=== PATIENT | male | born 1945 | race Caucasian/White ===

== ENCOUNTER 2022-10-11 19:49 | Inpatient (IN) | payer OTHER ==
[2022-10-11] MEDS ORDERED: NA CHLORIDE 0.9% 500 ML ONE ×2 (20:03→22:16)
[2022-10-11 20:38] LABS: Absolute Lymphocytes (CBC) 0.9 K/uL (0.7-4.9); Hematocrit 32.7 % (39.6-49.0); Lymphocytes % 16.5 % (15.3-44.8); MCV 68.2 fL (80-100); MPV 9.6 fL (7.6-11.3)
[2022-10-11 20:42] LABS: Protime INR 1.12
[2022-10-11 20:56] LABS: Albumin 4.1 g/dL (3.4-5.0); Bilirubin Total 0.9 mg/dL (0.2-1.0); Potassium 4.2 mmol/L (3.5-5.1)
--- NOTE | 2022-10-11 21:00 | RAD REPORT ---
EXAM DESCRIPTION: CT - Head Brain Wo Cont - 10/11/2022 8:28 pm CLINICAL HISTORY: AMS COMPARISON: <Comparisons> TECHNIQUE: All CT scans are performed using dose optimization technique as appropriate and may inclu de automated exposure control or mA/KV adjustment according to patient size. FINDINGS: No intracranial hemorrhage, hydrocephalus or extra-axial fluid collection.No areas of brai n edema or evidence of midline shift. Mild chronic small vessel ischemic changes. The paranasal sinuses and mastoids are clear. The calvarium is intact. IMPRESSION: No acute intracranial abnormality.
[2022-10-11 21:07] LABS: Urine Blood 2+ (Negative); Urine Glucose Negative (Negative); Urine Protein 1+ (Negative); Urine Specific Gravity >=1.030 (1.005-1.030); Urine pH 5.5 (5.0-7.0)
[2022-10-11 21:17] LABS: Urine Bacteria 20-50 /HPF (<20); Urine Crystals Unidentified Few /HPF (None Seen); Urine Mucus Slight /HPF (None Seen); Urine RBC >50 /HPF (None Seen)
[2022-10-11 21:18] LABS: SARS-COV-2 RT PCR POSITIVE (NEGATIVE)
--- NOTE | 2022-10-11 21:28 | ER ---
Nurse's Notes [facility] Name: Dejuan Jackman Age: 77 yrs Sex: Male : 1945 Arrival Date: 10/11/2022 Time: 19:51 Bed 3 Private MD: Diagnosis: UTI/ Urinary tract infection, site not specified;SARS-associated coronavirus as the cause of diseases classified elsewhere;Dehydration;Altered mental status, unspecified Presentation: 10/11 19:54 Chief complaint: EMS states: neighbor called EMS because pt was walking outside with no as6 clothes on, altered mental status. Coronavirus screen: At this time, the client does not indicate any symptoms associated with coronavirus-19. Ebola Screen: No symptoms or risks identified at this time. Risk Assessment: Do you want to hurt yourself or someone else? Patient reports no desire to harm self or others. Onset of symptoms was October 11, 2022. 19:54 Method Of Arrival: EMS: [facility] as6 19:54 Acuity: BOBBY 2 as6 20:30 Initial Sepsis Screen: Does the patient meet any 2 criteria? Altered Mental Status. as6 Does the patient have a suspected source of infection? No. Patient's initial sepsis screen is negative. Historical: - Allergies: 19:56 Sulfa (Sulfonamide Antibiotics); as6 - PMHx: 19:56 Hypertensive disorder; as6 - Immunization history:: Adult Immunizations unknown. - Social history:: Smoking status: unknown. - Family history:: not pertinent. - Hospitalizations: : No recent hospitalization is reported. Screenin:29 [facility] ED Fall Risk Assessment (Adult) Confusion or Disorientation Yes (5 pts) as6 Intoxicated or Sedated No (0 pts) Impaired Gait Yes (1 pt) Score/Fall Risk Level 3 or more points = High Risk Maintained a safe environment, Educated pt \T\ family on fall prevention, incl call for assistance when getting out of bed. Abuse screen: Denies threats or abuse. Denies injuries from another. Nutritional screening: No deficits noted. Tuberculosis screening: No symptoms or risk factors identified. Assessment: 20:28 General: Appears slender, Behavior is confused . Pain: Denies pain. Neuro: Level of as6 Consciousness is awake, alert, confused, Oriented to person. Respiratory: Respiratory effort is even, unlabored. Derm: skin tear to right forearm. 21:30 Reassessment: Patient appears in no apparent distress at this time. No changes from em6 previously documented assessment. Patient and/or family updated on plan of care and expected duration. Pain level reassessed. 22:30 Reassessment: Patient appears in no apparent distress at this time. No changes from em6 previously documented assessment. Patient and/or family updated on plan of care and expected duration. Pain level reassessed. 23:06 Reassessment: nurse to nurse report given to ashlee beal. em6 Vital Signs: 20:10 BP 121 / 51; Pulse 98; Resp 17 S; Temp 98.5(O); Pulse Ox 93% on R/A; Weight 63.5 kg; as6 Height 5 ft. 7 in. (170.18 cm); 21:25 BP 121 / 57; Pulse 79; Resp 19 S; Pulse Ox 96% on R/A; as6 22:57 BP 103 / 58; Pulse 89; Resp 16 S; Pulse Ox 94% on R/A; as6 20:10 Body Mass Index 21.93 (63.50 kg, 170.18 cm) as6 ED Course: 19:51 Patient arrived in ED. rn 19:51 Von Toro MD is Attending Physician. rn 19:54 Bhargav Taylor, PITER is Primary Nurse. as6 19:56 Triage completed. as6 19:56 Arm band placed on. as6 19:56 Client placed on continuous cardiac and pulse oximetry monitoring. NIBP monitoring mb4 applied. stock replenisher on. Pulse ox on. NIBP on. 19:56 Patient has correct armband on for positive identification. Placed in gown. Bed in low mb4 position. Side rails up X2. 20:05 EKG done, by ED staff, reviewed by Von Toro MD. mb4 20:30 CT Head Brain wo Cont In Process Unspecified. EDMS 20:30 Inserted saline lock: 18 gauge in right antecubital area, using aseptic technique. as6 Blood collected. 21:26 Jerri Ingram MD is Hospitalizing Provider. rn 21:37 Chest Single View XRAY In Process Unspecified. EDMS 22:57 No provider procedures requiring assistance completed. Patient admitted, IV remains in as6 place. 10/12 02:26 Primary Nurse role handed off by Bhargav Taylor RN rn Administered Medications: 10/11 20:20 Drug: NS 0.9% 500 ml Route: IV; Rate: bolus; Site: right antecubital; as6 22:58 Follow up: Response: No adverse reaction; IV Status: Completed infusion; IV Intake: as6 500ml 23:01 Follow up: Response: No adverse reaction; IV Status: Completed infusion; IV Intake: em6 500ml 22:18 Drug: NS 0.9% 500 ml Route: IV; Rate: bolus; Site: right antecubital; em6 22:57 Follow up: Response: No adverse reaction; IV Status: Completed infusion; IV Intake: as6 500ml Medication: 22:57 VIS not applicable for this client. as6 Intake: 22:57 IV: 500ml; Total: 500ml. as6 22:58 IV: 500ml; Total: 1000ml. as6 23:01 IV: 500ml; Total: 1500ml. em6 Outcome: 21:27 Decision to Hospitalize by Provider. rn 22:57 Condition: stable as6 22:57 Instructed on the need for admit. 23:07 Admitted to Med/surg accompanied by tech, via wheelchair, room 409, with chart, Report em6 called to ashlee 23:14 Patient left the ED. as6 10/12 02:34 Patient left the ED. neli Signatures: Dispatcher [employer] EDAlexandrea Pearson RN RN kl Nieto, Roman, MD MD rn Baxter, Mackenzie mb4 Bhargav Taylor RN RN asKajal Thompson RN RN em6
--- NOTE | 2022-10-11 21:28 | EDPHYS ---
Physician Documentation [facility] Name: Dejuan Jackman Age: 77 yrs Sex: Male : 1945 Arrival Date: 10/11/2022 Time: 19:51 Bed 3 Private MD: ED Physician Von Toro HPI: 10/11 20:03 This 77 yrs old Male presents to ER via EMS with complaints of AMS. rn 20:03 The patient presents with agitation, confusion, disorientation. Onset: The rn symptoms/episode began/occurred at an unknown time. Possible causes: unknown. Associated signs and symptoms: Pertinent positives: agitation, confusion, Pertinent negatives: abdominal pain, chest pain, headache. Current symptoms: In the emergency department the patient's symptoms are unchanged from the initial presentation. The patient has experienced similar episodes in the past. It is unknown whether or not the patient has recently seen a physician. Per EMS, neighbor called 911 when patient was walking outside naked in cold acting funny. Family member reports seen for this before and "always UTI". Patient denies trauma. Denies focal pain or injury. Was agitated and combative at scene, did not require any meds, now more calm. . Historical: - Allergies: 19:56 Sulfa (Sulfonamide Antibiotics); as6 - PMHx: 19:56 Hypertensive disorder; as6 - Immunization history:: Adult Immunizations unknown. - Social history:: Smoking status: unknown. - Family history:: not pertinent. - Hospitalizations: : No recent hospitalization is reported. ROS: 20:03 Constitutional: Negative for fever, chills, and weight loss, Eyes: Negative for injury, rn pain, redness, and discharge, Neck: Negative for injury, pain, and swelling, Cardiovascular: Negative for chest pain, palpitations, and edema, Respiratory: Negative for shortness of breath, cough, wheezing, and pleuritic chest pain, Abdomen/GI: Negative for abdominal pain, nausea, vomiting, diarrhea, and constipation, Back: Negative for injury and pain, MS/Extremity: Negative for injury and deformity, Skin: Negative for injury, rash, and discoloration, Neuro: Negative for headache, numbness, tingling, and seizure. Exam: 20:03 Constitutional: This is a well developed, well nourished patient who is awake, alert, rn and in no acute distress. Head/Face: Normocephalic, atraumatic. Eyes: Periorbital areas with no swelling, redness, or edema. ENT: dry MM Cardiovascular: Regular rate and rhythm. No pulse deficits. Respiratory: No increased work of breathing, no retractions or nasal flaring. Abdomen/GI: soft, non-tender Skin: Warm, dry, + superficial skin avulsion right dorsal forearm. MS/ Extremity: Pulses equal, no cyanosis. Neurovascular intact. Full, normal range of motion. Equal circumference. Neuro: Awake and alert, GCS 15, oriented to person, place,not time. Cranial nerves II-XII grossly intact. Motor strength 4/5 in all extremities. Sensory grossly intact 22:31 ECG was reviewed by the Attending Physician. rn Vital Signs: 20:10 BP 121 / 51; Pulse 98; Resp 17 S; Temp 98.5(O); Pulse Ox 93% on R/A; Weight 63.5 kg; as6 Height 5 ft. 7 in. (170.18 cm); 21:25 BP 121 / 57; Pulse 79; Resp 19 S; Pulse Ox 96% on R/A; as6 22:57 BP 103 / 58; Pulse 89; Resp 16 S; Pulse Ox 94% on R/A; as6 20:10 Body Mass Index 21.93 (63.50 kg, 170.18 cm) as6 MDM: 19:51 Patient medically screened. rn 21:23 Differential Diagnosis: electrolyte abnormality, sepsis, UTI, volume depletion. rn 21:24 Data reviewed: vital signs, nurses notes. rn 21:24 Counseling: I had a detailed discussion with the patient and/or guardian regarding: the rn historical points, exam findings, and any diagnostic results supporting the discharge/admit diagnosis, lab results, radiology results, the need for further work-up and treatment in the hospital. Response to treatment: the patient's symptoms have mildly improved after treatment, and as a result, I will admit patient. Admission orders: after a detailed discussion of the patient's condition and case, the admit orders are written by me. ED course: Pt with UTI, does not meet severe sepsis criteria. Will admit to hospitalist service. . 10/12 02:21 ED course: Antibiotic order somehow didn't go through, abx ordered on [facility] side rn once admitted. . 02:24 ED course: In review of visit, diagnosis changed to UTI and AMS, as patient does not rn meet severe sepsis criteria as only has 1 SIRS criteria. Pt does not meet severe sepsis criteria. . 10/11 19:53 Order name: Blood Culture Adult (2) rn 10/11 19:53 Order name: CBC with Diff; Complete Time: 21:47 10/11 19:53 Order name: CMP; Complete Time: 21:22 rn 10/11 19:53 Order name: Lactate w/ 2H reflex if indic.; Complete Time: 21:22 10/11 19:53 Order name: Protime (+inr); Complete Time: 21:22 10/11 19:53 Order name: Ptt, Activated; Complete Time: 21:22 10/11 19:53 Order name: Urine Culture 10/11 19:53 Order name: Urine Microscopic Only; Complete Time: 21:22 10/11 19:53 Order name: Chest Single View XRAY; Complete Time: 21:47 10/11 19:53 Order name: COVID-19/FLU A+B; Complete Time: 21:22 10/11 19:53 Order name: CT Head Brain wo Cont; Complete Time: 21:22 10/11 19:53 Order name: BNP; Complete Time: 21:22 10/11 21:08 Order name: Urine Dipstick-Ancillary; Complete Time: 21:22 EDCO 10/11 21:46 Order name: CBC Smear Scan; Complete Time: 21:47 EDCO 10/11 19:53 Order name: EKG; Complete Time: 19:54 10/11 19:53 Order name: Accucheck; Complete Time: 21:17 10/11 19:53 Order name: Cardiac monitoring; Complete Time: 20:02 10/11 19:53 Order name: EKG - Nurse/Tech; Complete Time: 20:02 10/11 19:53 Order name: IV Saline Lock - Large Bore; Complete Time: 20:28 10/11 19:53 Order name: Labs collected and sent; Complete Time: 20:28 10/11 19:53 Order name: O2 Per Protocol; Complete Time: 20:28 10/11 19:53 Order name: O2 Sat Monitoring; Complete Time: 20:28 rn 10/11 19:53 Order name: Urine Dipstick-Ancillary (obtain specimen); Complete Time: 21:17 rn 10/11 19:53 Order name: Vital Signs; Complete Time: 20:28 rn EC/27 22:31 Rate is 101 beats/min. Rhythm is irregular. QRS [place] is Normal. [place] interval is normal. rn QRS interval is normal. QT interval is normal. No Q waves. T waves are Normal. No ST changes noted. Clinical impression: Sinus tachycardia. Interpreted by me. Reviewed by me. Administered Medications: 20:20 Drug: NS 0.9% 500 ml Route: IV; Rate: bolus; Site: right antecubital; as6 22:58 Follow up: Response: No adverse reaction; IV Status: Completed infusion; IV Intake: as6 500ml 23:01 Follow up: Response: No adverse reaction; IV Status: Completed infusion; IV Intake: em6 500ml 22:18 Drug: NS 0.9% 500 ml Route: IV; Rate: bolus; Site: right antecubital; em6 22:57 Follow up: Response: No adverse reaction; IV Status: Completed infusion; IV Intake: as6 500ml Disposition Summary: 10/11/22 21:27 Hospitalization Ordered Hospitalization Status: Inpatient Admission rn Provider: Jerri Ingram rn [facility] rn Condition: Stable rn Problem: new rn Symptoms: have improved rn Bed/Room Type: Standard rn Room Assignment: 409(10/11/22 22:42) cg Diagnosis - UTI/ Urinary tract infection, site not specified rn - SARS-associated coronavirus as the cause of diseases classified elsewhere rn - Dehydration rn - Altered mental status, unspecified rn Forms: - Medication Reconciliation Form rn - SBAR form rn Signatures: Dispatcher [employer] EDMS oVn Toro MD MD rn Garcia, Cindy RN RN cg Bhargav Taylor RN RN as6 Kajal Ramirez RN RN em6 Rose Fisher PA-C PA-C sb4 Corrections: (The following items were deleted from the chart) 22:42 21:27 rn cg 10/12 02:26 10/11 21:24 ED course: Pt with severe sepsis, combination of COVID and UTI, elevated rn lactate, fluids ordered, does not require 30ml/kg bolus as not hypotensive and lactate not > 4. Abx ordered. Will admit to hospitalist service. . lian 10/12 02:10/11 21:27 Severe sepsis without septic shock rn lian 10/12 02:10/11 21:24 Critical Care: rn lian 10/12 21:24 Critical care time: Bedside Care: 35 minutes. Total time: 35 minutes lian beal
--- NOTE | 2022-10-11 21:43 | RAD REPORT ---
EXAM DESCRIPTION: RAD - Chest Single View - 10/11/2022 9:36 pm CLINICAL HISTORY: AMS COMPARISON: No comparisons FINDINGS: Lines: None. Lungs: Low lung volumes. Mild basilar opacities. Pleural: No significant pleural effusions or pneumothorax. Cardiac: The heart size is within normal limits. Mediastinum: Within normal limits. Bones: No acute fractures. Other: None IMPRESSION: Low lung volumes with likely some atelectasis. No consolidative pneumonia or edema ident ified.
[2022-10-11 21:45] LABS: Anisocytosis SLIGHT; Blood Morphology Comment NOTED (NOT SEEN); White Blood Cell Scan OK (OK)
[2022-10-11 21:46] LABS: Platelet Estimate ADEQ
[2022-10-11] MEDS ORDERED: ACETAMINOPHEN 325 MG TABLET PO PRN (23:17)
[2022-10-11] MEDS: NA CHLORIDE 0.9% 1,000 ML IV SCH (23:39)
[2022-10-11 23:53] VITALS: BMI 21.9
--- NOTE | 2022-10-12 01:06 | P.HP ---
Patient History Date of Service: 10/12/22 Reason for admission: AMS, COVID, UTI History of Present Illness: Patient is a 77-year-old male with past medical history of hypertension who presented to the emergency department via EMS with altered mental status. Per EMS, patient was found wandering outside naked. He is only oriented x 1 but typically oriented x 4 and lives at home alone. When speaking with his daughter, she states he often gets confused/altered like this when having a UTI. His urine was positive for UTI in the ED with trace ketones, 2+ blood, nitrites, leukocyte esterase, and 20-50 bacteria. He was also noted to be COVID-positive. Other labs significant for creatinine 1.43 and lactate 2.1. Patient is admitted for further management. Allergies Unable to Assess Allergy (Unverified 10/11/22 23:16) Home medications list reviewed: Yes - Past Medical/Surgical History Diabetic: No -: Hypertension Past Surgical History: Unable to obtain Psychosocial/ Personal History: Patient lives at home alone. - Family History Family History: Reviewed- Non-Contributory - Social History Smoking Status: Never smoker Alcohol use: No CD- Drugs: No Caffeine use: Yes Place of Residence: Home Review of Systems is unable to be obtained Physical Examination - Vital Signs Temperature: 97.1 F Blood Pressure: 136/60 Pulse: 84 Respirations: 18 Pulse Ox (%): 96 - Physical Exam General: In no apparent distress, Oriented x1 HEENT: Atraumatic, PERRLA, EOMI, Sclerae nonicteric Neck: Supple, 2+ carotid pulse no bruit, No LAD, Without JVD or thyroid abnormality Respiratory: Clear to auscultation bilaterally, Normal air movement Cardiovascular: Regular rate/rhythm, Normal S1 S2 Gastrointestinal: Normal bowel sounds, No tenderness Musculoskeletal: No tenderness Integumentary: No rashes Neurological: Sensation intact, Abnormal affect - Studies Laboratory Data (last 24 hrs) 10/11/22 20:22: PT 12.3, INR 1.12, APTT 27.4 10/11/22 20:22: Sodium 145, Potassium 4.2, BUN 32 H, Creatinine 1.43 H, Glucose 115 H, Total Bilirubin 0.9, AST 25, ALT 25, Alkaline Phosphatase 115 10/11/22 20:22: WBC 5.20, Hgb 10.4 L, Hct 32.7 L, Plt Count 200 Assessment and Plan - Problems (Diagnosis) (1) COVID-19 Current Visit: Yes Status: Acute (2) Altered mental status Current Visit: Yes Status: Acute Qualifiers: Altered mental status type: unspecified Qualified Code(s): R41.82 - Altered mental status, unspecified (3) UTI (urinary tract infection) Current Visit: Yes Status: Acute Qualifiers: Urinary tract infection type: acute cystitis Hematuria presence: without hematuria Qualified Code(s): N30.00 - Acute cystitis without hematuria (4) Hypertension Current Visit: Yes Status: Chronic Qualifiers: Hypertension type: primary hypertension Qualified Code(s): I10 - Essential (primary) hypertension - Plan Patient is admitted for further management of UTI/AMS/COVID. Rocephin for UTI. Follow urine culture. Lactate increased from 2.1 to 2.3. However, he had not yet received antibiotics. Rocephin ordered. Haldol PRN agitation. Patient has not exhibited any combative behavior. Isolation precautions given COVID. Patient is asymptomatic otherwise. Continue gentle IV hydration. Monitor and replete electrolytes per protocol. Reconcile and continue home medications. Lovenox for VTE prophylaxis. Full code. Discharge Plan: Home Plan to discharge in: 24 Hours - Advance Directives Does patient have a Living Will: No Does patient have a Durable POA for Healthcare: No - Code Status/Comfort Care Code Status Assessed: Yes Code Status: Full Code Physician Review: Patient Assessed, Agree with Above Assessment and Plan Critical Care: No Time Spent Managing Pts Care (In Minutes): 50
[2022-10-12] MEDS ORDERED: NA CHLORIDE 0.9% 500 ML IV ONE (02:02)
[2022-10-12] MEDS: CEFTRIAXONE 1,000 MG in NA CHLORIDE 0.9% 50 ML IVPB SCH ×2 (02:51→08:11)
[2022-10-12 04:12] LABS: Absolute Lymphocytes (CBC) 1.4 K/uL (0.7-4.9); Hematocrit 28.8 % (39.6-49.0); Lymphocytes % 22.2 % (15.3-44.8); RBC Red Blood Cell Count 4.21 M/uL (4.33-5.43)
[2022-10-12 04:17] LABS: MCV 68.3 fL (80-100)
[2022-10-12 04:41] LABS: Magnesium 2.2 mg/dL (1.6-2.4); Phosphorus 4.1 mg/dL (2.5-4.9); Potassium 4.1 mmol/L (3.5-5.1); Thyroid Stimulating Hormone 1.15 uIU/mL (0.358-3.740)
[2022-10-12] MEDS ORDERED: CEFTRIAXONE 1000 MG/VIAL ONE (07:57)
[2022-10-12] MEDS: ENOXAPARIN 40 MG/0.4 ML SQ SCH (07:57)
[2022-10-12] MEDS ORDERED: NA CHLORIDE 0.9% 50 ML IV ONE (07:59)
[2022-10-12] MEDS: HALOPERIDOL LACT 5 MG/ML INJ IV PRN (08:00)
[2022-10-12] MEDS: ZINC SULFATE 220 MG CAP PO SCH (08:13)
[2022-10-12] MEDS: ASCORBIC ACID 500 MG TABLET PO SCH (08:13)
[2022-10-12] MEDS ORDERED: CEFTRIAXONE 1,000 MG in NA CHLORIDE 0.9% 50 ML IVPB SCH (09:00)
[2022-10-12] MEDS ORDERED: HALOPERIDOL LACT 5 MG/ML INJ IV ONE (09:15)
[2022-10-12] MEDS ORDERED: WATER FOR INJ,STERILE 10 ML IM PRN (10:25)
[2022-10-12] MEDS ORDERED: ZIPRASIDONE MESYLA 20 MG/VIAL IM ONE (10:30)
[2022-10-12] MEDS: NA CHLORIDE 0.9% 1,000 ML IV SCH (12:37)
--- NOTE | 2022-10-12 14:44 | P.PN ---
Date of Service: 10/12/22 Patient seen and examined. He is agitated and restless. Bladder scan shows urinary retention up to 550. Villagran catheter inserted with return of bloody urine. Diagnosis: Acute encephalopathy. Also suspect dementia with psychosis. Acute urinary retention. Hematuria. Anemia Hypernatremia Plan: Continue IV Rocephin Villagran catheter inserted and maintained Geodon as needed for delirium/psychosis. Monitor urine output. Patient may need three-way catheter for irrigation if he retains urine again. Follow cultures.
[2022-10-13] MEDS: NA CHLORIDE 0.9% 1,000 ML IV SCH ×2 (01:43→15:17)
[2022-10-13] MEDS: HALOPERIDOL LACT 5 MG/ML INJ IV PRN ×3 (02:05→20:29)
[2022-10-13 03:26] LABS: Hematocrit 29.8 % (39.6-49.0); Lymphocytes % 13.7 % (15.3-44.8); MPV 10.1 fL (7.6-11.3); RBC Red Blood Cell Count 4.35 M/uL (4.33-5.43)
[2022-10-13 03:37] LABS: MCV 68.5 fL (80-100)
[2022-10-13 04:13] LABS: Potassium 3.7 mmol/L (3.5-5.1)
[2022-10-13] MEDS: ASCORBIC ACID 500 MG TABLET PO SCH (09:00)
[2022-10-13] MEDS: ZINC SULFATE 220 MG CAP PO SCH (09:00)
[2022-10-13] MEDS ORDERED: POTASSIUM CL SA 10 MEQ TAB PO ONE (09:00)
[2022-10-13] MEDS ORDERED: WATER FOR INJ,STERILE 10 ML IM PRN (09:41)
[2022-10-13] MEDS ORDERED: ZIPRASIDONE MESYLA 20 MG/VIAL IM ONE (10:00)
[2022-10-13] MEDS: CEFTRIAXONE 1,000 MG in NA CHLORIDE 0.9% 50 ML IVPB SCH (12:36)
[2022-10-13] MEDS: ENOXAPARIN 40 MG/0.4 ML SQ SCH (12:37)
--- NOTE | 2022-10-13 14:07 | P.PN ---
Subjective Date of Service: 10/13/22 Chief Complaint: AMS, COVID, UTI Patient remained confused and agitated. He is unable to provide any subjective complaint. He has been requiring Haldol and Geodon for agitation. Urine appear concentrated. Physical Examination - Vital Signs Temperature: 97.4 F Blood Pressure: 131/61 Pulse: 90 Respirations: 18 Pulse Ox (%): 91 - Physical Exam General: Confused Neck: JVD not distended Respiratory: Clear to auscultation bilaterally, Normal air movement Cardiovascular: No edema, Regular rate/rhythm, Normal S1 S2 Gastrointestinal: Soft and benign, Non-distended, No tenderness Musculoskeletal: No swelling Integumentary: No cyanosis Neurological: Other (No focal motor deficit.) Assessment And Plan - Current Problems (Diagnosis) (1) Acute metabolic encephalopathy Current Visit: Yes Status: Acute (2) Acute urinary retention Current Visit: Yes Status: Acute (3) COVID-19 Current Visit: Yes Status: Acute (4) UTI (urinary tract infection) Current Visit: Yes Status: Acute Qualifiers: Urinary tract infection type: acute cystitis Hematuria presence: without hematuria Qualified Code(s): N30.00 - Acute cystitis without hematuria (5) Microcytic anemia Current Visit: Yes Status: Acute - Plan Villagran catheter inserted and retained for acute urinary retention. Urine culture is growing gram-negative rods. Differential diagnosis for altered mental status-UTI versus COVID encephalopathy. Baseline dementia with behavioral disturbance also suspected. Continue current antibiotics. Haldol as needed for agitation. Maintain Villagran catheter. Start tamsulosin. Trial of Seroquel if patient will tolerate oral medications. Follow cultures. Continue IV hydration. Noted iron deficiency. Will prescribe oral iron therapy once patient is able to tolerate p.o.
--- NOTE | 2022-10-13 17:49 | EKG ---
Test Date: 2022-10-11 Test Time: 19:57:11 Bilingual Executive Assistant: ANNALISA MEASUREMENT RESULTS: Intervals: Rate: 101 CO: 168 QRSD: 92 QT: 374 QTc: 484 [place]: P: 72 CO: 168 QRS: 72 T: 60 INTERPRETIVE STATEMENTS: Sinus tachycardia with frequent premature ventricular complexes Possible Left atrial enlargement Anterior infarct, age undetermined Abnormal ECG No previous ECG available for comparison Electronically Signed On 10-13-22 17:45:04 DATA ENTRY MACHINE OPERATOR by Ilya Goodwin
[2022-10-14 04:13] LABS: Absolute Lymphocytes (CBC) 1.2 K/uL (0.7-4.9); MCV 68.1 fL (80-100); MPV 10.3 fL (7.6-11.3); RBC Red Blood Cell Count 4.55 M/uL (4.33-5.43)
[2022-10-14 04:26] LABS: Potassium 3.5 mmol/L (3.5-5.1)
[2022-10-14] MEDS: NA CHLORIDE 0.9% 1,000 ML IV SCH (04:27)
[2022-10-14] MEDS: HALOPERIDOL LACT 5 MG/ML INJ IV PRN (05:15)
[2022-10-14] MEDS ORDERED: POTASSIUM 25 MEQ EFFERV TAB PO ONE (06:00)
[2022-10-14] MEDS: ZINC SULFATE 220 MG CAP PO SCH (09:00)
[2022-10-14] MEDS: ASCORBIC ACID 500 MG TABLET PO SCH (09:00)
[2022-10-14] MEDS: CEFTRIAXONE 1,000 MG in NA CHLORIDE 0.9% 50 ML IVPB SCH (09:05)
[2022-10-14] MEDS: ENOXAPARIN 40 MG/0.4 ML SQ SCH (09:06)
[2022-10-14] MEDS: ZIPRASIDONE MESYLA 20 MG/VIAL IM PRN ×2 (10:19→21:02)
--- NOTE | 2022-10-14 15:35 | P.PN ---
Subjective Date of Service: 10/14/22 Chief Complaint: AMS, COVID, UTI No change in mental status. Patient remain agitated and requiring antipsychotics. Physical Examination - Vital Signs Temperature: 98.2 F Blood Pressure: 115/80 Pulse: 97 Respirations: 18 Pulse Ox (%): 92 - Physical Exam General: Confused HEENT: Mucous membr. moist/pink Neck: JVD not distended Respiratory: Clear to auscultation bilaterally, Normal air movement Cardiovascular: No edema, Regular rate/rhythm, Normal S1 S2 Gastrointestinal: Normal bowel sounds, Soft and benign, Non-distended Musculoskeletal: No swelling Neurological: Other (No focal motor deficit) - Studies Microbiology Data (last 24 hrs): 10/11/22 21:00 Clean Catch Urine [place] Count - Final 10/11/22 21:00 Clean Catch Urine - Final Escherichia Coli Gram Neg Meño Assessment And Plan - Current Problems (Diagnosis) (1) Acute metabolic encephalopathy Current Visit: Yes Status: Acute (2) Acute urinary retention Current Visit: Yes Status: Acute (3) COVID-19 Current Visit: Yes Status: Acute (4) UTI (urinary tract infection) Current Visit: Yes Status: Acute Qualifiers: Urinary tract infection type: acute cystitis Hematuria presence: without hematuria Qualified Code(s): N30.00 - Acute cystitis without hematuria (5) Microcytic anemia Current Visit: Yes Status: Acute (6) Chronic anemia Current Visit: Yes Status: Acute - Plan Maintain Villagran catheter for urinary retention. Urine culture is growing pansensitive E. coli Differential diagnosis for altered mental status-UTI versus COVID encephalopathy. Baseline dementia with behavioral disturbance also suspected. Continue IV Rocephin. Patient to complete at least 7 days of treatment for complicated UTI. Geodon as needed for agitation. Also started Seroquel twice daily Continue tamsulosin. Continue IV hydration. Hemoglobin has been stable. Noted iron deficiency. Will prescribe oral iron therapy once patient is able to tolerate p.o.
[2022-10-14] MEDS: D5.45NS W/KCL 20MEQ 20 MEQ/1,000 ML BAG IV SCH (17:55)
[2022-10-14] MEDS: QUETIAPINE 25 MG TAB PO SCH (21:00)
[2022-10-14] MEDS: WATER FOR INJ,STERILE 10 ML IM PRN (21:02)
[2022-10-15] MEDS: D5.45NS W/KCL 20MEQ 20 MEQ/1,000 ML BAG IV SCH ×3 (03:47→20:57)
[2022-10-15 04:19] LABS: Absolute Lymphocytes (CBC) 1.2 K/uL (0.7-4.9); Hematocrit 31.5 % (39.6-49.0); Lymphocytes % 24.8 % (15.3-44.8); MCV 68.2 fL (80-100); MPV 10.1 fL (7.6-11.3); RBC Red Blood Cell Count 4.62 M/uL (4.33-5.43)
[2022-10-15 04:33] LABS: Potassium 3.5 mmol/L (3.5-5.1)
[2022-10-15 04:47] LABS: Blood Morphology Comment NOTED (NOT SEEN); Platelet Estimate ADEQ; White Blood Cell Scan OK (OK)
[2022-10-15 04:48] LABS: Burr Cells 1+; Hypochromasia 1+; Ovalocytes 1+
[2022-10-15] MEDS: ENOXAPARIN 40 MG/0.4 ML SQ SCH (07:28)
[2022-10-15] MEDS: CEFTRIAXONE 1,000 MG in NA CHLORIDE 0.9% 50 ML IVPB SCH (07:28)
[2022-10-15] MEDS: ZIPRASIDONE MESYLA 20 MG/VIAL IM PRN (07:29)
[2022-10-15] MEDS: WATER FOR INJ,STERILE 10 ML IM PRN (07:29)
[2022-10-15] MEDS: QUETIAPINE 25 MG TAB PO SCH ×2 (07:36→20:37)
[2022-10-15] MEDS: ASCORBIC ACID 500 MG TABLET PO SCH (07:37)
[2022-10-15] MEDS: ZINC SULFATE 220 MG CAP PO SCH (07:38)
--- NOTE | 2022-10-15 15:17 | P.PN ---
Subjective Date of Service: 10/15/22 Chief Complaint: AMS, COVID, UTI No major changes from yesterday. Patient still requiring antipsychotics for agitation. No improvement in mental status. Physical Examination - Vital Signs Temperature: 97.4 F Blood Pressure: 134/63 Pulse: 90 Respirations: 18 Pulse Ox (%): 96 - Physical Exam General: In no apparent distress, Other (Somnolent) Neck: JVD not distended Respiratory: Clear to auscultation bilaterally, Normal air movement Cardiovascular: No edema, Regular rate/rhythm, Normal S1 S2 Gastrointestinal: Soft and benign, Non-distended Integumentary: No cyanosis Neurological: Other (Patient moves all extremities), Dementia Assessment And Plan - Current Problems (Diagnosis) (1) Acute metabolic encephalopathy Current Visit: Yes Status: Acute (2) Acute urinary retention Current Visit: Yes Status: Acute (3) COVID-19 Current Visit: Yes Status: Acute (4) UTI (urinary tract infection) Current Visit: Yes Status: Acute Qualifiers: Urinary tract infection type: acute cystitis Hematuria presence: without hematuria Qualified Code(s): N30.00 - Acute cystitis without hematuria (5) Microcytic anemia Current Visit: Yes Status: Acute (6) Chronic anemia Current Visit: Yes Status: Acute - Plan Maintain Villagran catheter for urinary retention. Urine culture is growing pansensitive E. coli. Differential diagnosis for altered mental status-UTI versus COVID enceph alopathy. Baseline dementia with behavioral disturbance also suspected. Continue IV Rocephin. Patient to complete at least 7 days of treatment for complicated UTI. Geodon as needed for agitation. Continues to require Continue tamsulosin. Continue IV hydration. Hemoglobin has been stable. Noted iron deficiency. Will prescribe oral iron therapy once patient is able to tolerate p.o.
--- NOTE | 2022-10-16 03:18 | P.PN ---
Date of Service: 10/16/22 Patient was noted to be hypoxic on room air 83%. RN noticed green vomit-like substance on his face and in his bed. Patient placed on nonrebreather. ABG without abnormalities. Chest x-ray showed left lung base opacity. Patient also less responsive than usual. Only responsive to painful stimuli at this moment. will obtain CT chest and start antibiotics for likely aspiration pneumonia.
[2022-10-16] MEDS ORDERED: CLINDAMYCIN 600MG/D5W 50 ML IV SCH ×2 (03:30→09:00)
[2022-10-16 05:15] LABS: Arterial Blood Carboxyhemoglob 1.4 % (0-1.5); Blood Gas Oxyhemoglobin 94.4 % (94-97); Blood O2 Saturation 96.7 % (92-98.5)
[2022-10-16] MEDS: D5.45NS W/KCL 20MEQ 20 MEQ/1,000 ML BAG IV SCH (06:26)
--- NOTE | 2022-10-16 07:19 | RAD REPORT ---
EXAM DESCRIPTION: CT - Chest For Pe Angio - 10/16/2022 5:26 am CLINICAL HISTORY: hypoxia COMPARISON: Chest Single View dated 10/16/2022 TECHNIQUE: Dynamically enhanced 3 mm thick images of the chest were obtained during administration o f approximately 150mL Isovue 370 IV contrast. Coronal and oblique MIP reconstruction images were gene rated and reviewed. Exam utilizes a protocol to evaluate the pulmonary arterial tree. All CT scans are performed using dose optimization technique as appropriate and may include automated exposure control or mA/KV adjustment according to patient size. FINDINGS: No pulmonary emboli are identified. The aorta as imaged shows no acute or suspicious finding. No cardiomegaly or pericardial effusion. Le ft ventricular wall hypertrophy is evident but sensitivity on CT imaging is limited. No focal consolidations seen. Lung markings on the right are generally within normal range. There is some minimal atelectasis in the posterior gutter on the left. No pleural effusion or pleural thickeni ng. No mediastinal or hilar suspicious masses. No chest wall masses or abnormal axillary lymphadenopathy. A significant amount of material is present the bronchial tree. Left mainstem bronchus and the left u pper lobe and left lower lobe bronchi are nearly fully opacified. This partial opacification extends into the left lower lobe segmental bronchi. Bronchial molina overall do not appear significantly thick ened. Patient may have mucous plugging from bronchitis or similar infectious process. Aspiration woul d be a consideration and needs to be correlated with patient's clinical status. IMPRESSION: No pulmonary emboli identified. Extensive debris in the bronchial tree most notable in the left mainstem bronchus and left lobar bron chi. This is typically mucous plugging from infectious/ inflammatory process. Aspiration is a conside ration and needs correlation with clinical presentation. Left ventricular myocardial hypertrophy is evident. CT sensitivity is limited. Follow-up echocardiogr aphy can be performed as clinical findings warrant.
[2022-10-16 07:38] LABS: Absolute Lymphocytes (CBC) 0.4 K/uL (0.7-4.9); Hematocrit 34.5 % (39.6-49.0); Lymphocytes % 4.8 % (15.3-44.8); MCV 67.6 fL (80-100); MPV 10.3 fL (7.6-11.3); RBC Red Blood Cell Count 5.11 M/uL (4.33-5.43)
[2022-10-16] MEDS: ASCORBIC ACID 500 MG TABLET PO SCH (08:12)
[2022-10-16] MEDS: ZINC SULFATE 220 MG CAP PO SCH (08:12)
[2022-10-16] MEDS: QUETIAPINE 25 MG TAB PO SCH (08:12)
[2022-10-16] MEDS: ENOXAPARIN 40 MG/0.4 ML SQ SCH (09:40)
[2022-10-16] MEDS: CEFTRIAXONE 1,000 MG in NA CHLORIDE 0.9% 50 ML IVPB SCH (09:41)
--- NOTE | 2022-10-16 15:25 | P.PN ---
Subjective Date of Service: 10/16/22 Chief Complaint: AMS, COVID, UTI Patient became dyspneic last night. Aspiration event suspected. He was placed on high flow oxygen Patient has not required any antipsychotics since yesterday morning. No improvement in mental status. Physical Examination - Vital Signs Temperature: 96.9 F Blood Pressure: 109/52 Pulse: 84 Respirations: 19 Pulse Ox (%): 98 - Physical Exam General: Other (Obtunded.) HEENT: Other (On high flow oxygen) Neck: JVD not distended Respiratory: Other (Bilateral upper airway transmitted sounds) Cardiovascular: No edema, Regular rate/rhythm Gastrointestinal: Soft and benign, Non-distended Musculoskeletal: No swelling Neurological: Other (Somnolent, responds to tactile and verbal.) Assessment And Plan - Current Problems (Diagnosis) (1) Acute metabolic encephalopathy Current Visit: Yes Status: Acute (2) Acute urinary retention Current Visit: Yes Status: Acute (3) COVID-19 Current Visit: Yes Status: Acute (4) UTI (urinary tract infection) Current Visit: Yes Status: Acute Qualifiers: Urinary tract infection type: acute cystitis Hematuria presence: without hematuria Qualified Code(s): N30.00 - Acute cystitis without hematuria (5) Microcytic anemia Current Visit: Yes Status: Acute (6) Chronic anemia Current Visit: Yes Status: Acute (7) Aspiration pneumonia Current Visit: Yes Status: Acute - Plan CT chest done last night reported Extensive debris in the bronchial tree most notable in the left mainstem bronchus and left lobar bronchi. This is typically mucous plugging from infectious/ inflammatory process. Could be aspiration pneumonia. Maintain Villagran catheter for urinary retention. Urine culture is growing pansensitive E. coli. Broaden antibiotics to IV Levaquin and Zosyn. Chest physiotherapy. Speech therapy consult. Baseline dementia with behavioral disturbance also suspected. Patient has no needed antipsychotics over the past 24 hours. Discontinue Seroquel. Continues to require Continue tamsulosin. Continue IV hydration. Hemoglobin has been stable. Noted iron deficiency.
[2022-10-16] MEDS: Levofloxacin 750mg IV 750 MG/150 ML BAG IV SCH (17:01)
[2022-10-16] MEDS: D5 0.9 NS 1,000 ML IV SCH (17:01)
[2022-10-16] MEDS: PIPER TAZO 3.375 GM in NA CHLORIDE 0.9% 100 ML IV SCH (17:39)
--- NOTE | 2022-10-16 19:11 | RAD REPORT ---
EXAM DESCRIPTION: RAD - Chest Single View - 10/16/2022 2:47 am CLINICAL HISTORY: The patient is 77 years old and is Male; hypoxia TECHNIQUE: Frontal view of the chest. COMPARISON: No relevant prior studies available. FINDINGS: Lungs: Low lung volumes. Mildly prominent interstitial markings. Hazy opacification of the left lung base. Pleural space: Unremarkable. No pneumothorax. Heart: Unremarkable. Mediastinum: Unremarkable. Bones/joints: Unremarkable. IMPRESSION: 1. Low lung volumes. Mildly prominent interstitial markings. 2. Hazy opacification of the left lung base. Electronically signed by: Wes Cooper MD 10/16/2022 2:59 AM WELDING INSPECTOR Due to temporary technical issues with the PACS/Fluency reporting system, reports are being signed by the in house radiologists without review as a courtesy to insure prompt reporting. The interpreting radiologist is fully responsible for the content of the report.
[2022-10-17] MEDS: PIPER TAZO 3.375 GM in NA CHLORIDE 0.9% 100 ML IV SCH ×3 (00:03→16:21)
[2022-10-17] MEDS: D5 0.9 NS 1,000 ML IV SCH ×2 (05:26→18:14)
[2022-10-17] MEDS: ENOXAPARIN 40 MG/0.4 ML SQ SCH (08:46)
[2022-10-17] MEDS: ASCORBIC ACID 500 MG TABLET PO SCH (08:49)
[2022-10-17] MEDS: ZINC SULFATE 220 MG CAP PO SCH (08:49)
[2022-10-17] MEDS: Levofloxacin 750mg IV 750 MG/150 ML BAG IV SCH (15:37)
--- NOTE | 2022-10-17 16:13 | P.PN ---
Subjective Date of Service: 10/17/22 Chief Complaint: AMS, COVID, UTI Patient is more awake today. No agitation last night. Patient is still requiring high flow oxygen. He has not required any antipsychotic for the last couple of days. Physical Examination - Vital Signs Temperature: 97.5 F Blood Pressure: 113/82 Pulse: 86 Respirations: 16 Pulse Ox (%): 100 - Physical Exam General: Confused, Other (Awake) Neck: JVD not distended Respiratory: Crackles/rales (Bibasilar) Cardiovascular: No edema, Regular rate/rhythm, Normal S1 S2 Gastrointestinal: Soft and benign, Non-distended, No tenderness Musculoskeletal: No swelling Neurological: Normal strength at 5/5 x4 extr - Studies Microbiology Data (last 24 hrs): 10/11/22 21:00 Blood - Blood Aerobic Blood Culture - Final No growth in 5 days. 10/11/22 21:00 Blood - Blood Anaerobic Blood Culture - Final No growth in 5 days. 10/11/22 20:22 Blood - Blood Aerobic Blood Culture - Final No growth in 5 days. 10/11/22 20:22 Blood - Blood Anaerobic Blood Culture - Final No growth in 5 days. Assessment And Plan - Current Problems (Diagnosis) (1) Acute metabolic encephalopathy Current Visit: Yes Status: Acute (2) Acute urinary retention Current Visit: Yes Status: Acute (3) COVID-19 Current Visit: Yes Status: Acute (4) UTI (urinary tract infection) Current Visit: Yes Status: Acute Qualifiers: Urinary tract infection type: acute cystitis Hematuria presence: without he maturia Qualified Code(s): N30.00 - Acute cystitis without hematuria (5) Microcytic anemia Current Visit: Yes Status: Acute (6) Chronic anemia Current Visit: Yes Status: Acute (7) Aspiration pneumonia Current Visit: Yes Status: Acute - Plan CT chest done last night reported Extensive debris in the bronchial tree most notable in the left mainstem bronchus and left lobar bronchi. This is typically mucous plugging from infectious/ inflammatory process. Could be aspiration pneumonia. Maintain Villagran catheter for urinary retention. Urine culture is growing pansensitive E. coli. Continue IV Levaquin and Zosyn. Chest physiotherapy. Speech therapy consulted. Baseline dementia with behavioral disturbance also suspected. Patient has no needed antipsychotics over the past 24 hours. Mental status is improved Off Seroquel. Is currently on 5 L oxygen by nasal cannula. Continue tamsulosin. Soft diet and monitor for respiratory. Awaiting speech input Continue IV hydration. Hemoglobin has been stable. Noted iron deficiency. Oral iron supplementation.
--- NOTE | 2022-10-17 21:52 | P.PN ---
Date of Service: 10/18/22 Subjective: mentation improving still with some slight confusion feels better, wants to go home ROS: A complete review of systems was performed and is negative except as mentioned above Physical Exam: Gen: NAD, AOx2, confused HEENT: normal conjunctiva, sclera anicteric CV: regular rate & rhythm, no edema Pulm: diminished bilaterally, on 2L NC Abd: soft, non-tender, non-distended Neuro: normal speech, normal affect, moves all extremities vitals reviewed Problem List acute metabolic encephalopathy, secondary to UTI UTI Urinary retention Aspiration with suspected pneumonia iron deficiency anemia, severe COVID-19 UTI Urine culture - hart sensitive E. coli ?urinary retention, mathias placed in ED aspiration pneumonia antibiotics broadened to iv levaquin/zosyn due to suspected aspiration event - overnight 10/15-10/16 CT noted extensive debris in bronchial treat - most notable in left mainstem bronchus and left lobar bronchi, infectious vs aspiration consulted pulm, eval for bronchoscopy speech consulted wean O2 as tolerated; not on home O2 continue tamsulosin continue IVF iron deficiency anemia could be contributing to psych baseline severely low IV iron ordered 10/18 VTE: lovenox Code: full Dispo: home vs SNF
[2022-10-18] MEDS: PIPER TAZO 3.375 GM in NA CHLORIDE 0.9% 100 ML IV SCH ×2 (00:33→08:31)
[2022-10-18 04:47] LABS: Absolute Lymphocytes (CBC) 1.3 K/uL (0.7-4.9); Hematocrit 29.1 % (39.6-49.0); MPV 10.6 fL (7.6-11.3); RBC Red Blood Cell Count 4.27 M/uL (4.33-5.43)
[2022-10-18 05:10] LABS: MCV 68.3 fL (80-100)
[2022-10-18 05:17] LABS: Potassium 3.9 mmol/L (3.5-5.1)
[2022-10-18] MEDS ORDERED: POTASSIUM 25 MEQ EFFERV TAB PO ONE (05:43)
[2022-10-18] MEDS: FE SULF/FA/VIT B COMP & C TAB PO SCH (08:31)
[2022-10-18] MEDS: ASCORBIC ACID 500 MG TABLET PO SCH (08:31)
[2022-10-18] MEDS: ENOXAPARIN 40 MG/0.4 ML SQ SCH (08:31)
[2022-10-18] MEDS: ZINC SULFATE 220 MG CAP PO SCH (08:31)
--- NOTE | 2022-10-18 12:10 | P.CNS ---
Date of Consult: 10/18/22 Reason for Consult: Possible aspiration Chief Complaint: AMS, COVID, UTI History of Present Illness: Patient is 77 years of age with a history of hypertension admitted with altered mental status resumed encephalopathy from UTI he was also COVID-positive normal renal function is currently doing better he wants to get up and go home denies any coughing shortness of breath fever or chills. Patient's CAT scan was abnormal with some mucus changes in his left mainstem does not smoke Allergies Sulfa (Sulfonamide Antibiotics) Allergy (Verified 10/16/22 15:37) UNK - Past Medical/Surgical History Diabetic: No -: Hypertension Psychosocial/ Personal History: Patient lives at home alone. - Social History Smoking Status: Unknown if ever smoked Alcohol use: No CD- Drugs: No Caffeine use: Yes Place of Residence: Home Review of Systems 10-point ROS is otherwise unremarkable General: Weakness Physical Examination Temp Pulse Resp BP Pulse Ox 97.4 F 78 18 113/56 L 97 10/18/22 11:52 10/18/22 11:52 10/18/22 11:52 10/18/22 11:52 10/18/22 11:52 General: Alert, In no apparent distress, Oriented x3 Respiratory: Clear to auscultation bilaterally Cardiovascular: No edema, Regular rate/rhythm, Normal S1 S2 Gastrointestinal: Normal bowel sounds, Soft and benign Musculoskeletal: No clubbing, No swelling, No warmth Integumentary: No breakdown - Problems (1) Abnormal CT scan of lung Current Visit: Yes Status: Acute Plan: Patient is 77 years of age admitted with a metabolic encephalopathy secondary to UTI also was positive for COVID is no evidence of COVID-pneumonia may have some mucoid secretions in the left mainstem bronchus no evidence of sepsis has had microcytic anemia oxygenation satisfactory E. coli isolated patient is eating and drinking can change to p.o. antibiotics plan to discharge home no bronchoscopy needed
[2022-10-18] MEDS: D5 0.9 NS 1,000 ML IV SCH ×2 (12:36→21:20)
[2022-10-18] MEDS ORDERED: SOD FERRIC GLUC COMPLX/SUCROSE 125 MG in NA CHLORIDE 0.9% 100 ML IV SCH (15:00)
[2022-10-18] MEDS: Levofloxacin 750mg IV 750 MG/150 ML BAG IV SCH (17:10)
[2022-10-18] MEDS: ENSURE ENLIVE 237 ML CAN PO SCH (20:38)
[2022-10-19] MEDS: MELATONIN 5 MG TABLET PO PRN ×2 (00:23→20:19)
[2022-10-19 04:01] LABS: Hematocrit 29.2 % (39.6-49.0); MCV 67.7 fL (80-100); MPV 9.7 fL (7.6-11.3); RBC Red Blood Cell Count 4.32 M/uL (4.33-5.43)
[2022-10-19 04:11] LABS: Magnesium 1.5 mg/dL (1.6-2.4); Potassium 3.9 mmol/L (3.5-5.1)
[2022-10-19] MEDS ORDERED: Magnesium Sulfate 2gm IVPB 2 G/50 ML BAG IV ONE (06:00)
[2022-10-19] MEDS: FE SULF/FA/VIT B COMP & C TAB PO SCH (08:46)
[2022-10-19] MEDS: ZINC SULFATE 220 MG CAP PO SCH (08:46)
[2022-10-19] MEDS: ENSURE ENLIVE 237 ML CAN PO SCH ×2 (08:46→20:19)
[2022-10-19] MEDS: ENOXAPARIN 40 MG/0.4 ML SQ SCH (08:46)
[2022-10-19] MEDS: ASCORBIC ACID 500 MG TABLET PO SCH (08:46)
[2022-10-19] MEDS ORDERED: POTASSIUM 25 MEQ EFFERV TAB PO ONE (09:00)
[2022-10-19] MEDS: SOD FERRIC GLUC COMPLX/SUCROSE 125 MG in NA CHLORIDE 0.9% 100 ML IV SCH (09:17)
[2022-10-19] MEDS: levoFLOXacin 750 MG TAB PO SCH (13:27)
[2022-10-19] MEDS ORDERED: OLANZapine 2.5 MG TAB PO ONE (18:00)
[2022-10-19] MEDS ORDERED: HALOPERIDOL LACT 5 MG/ML INJ IV PRN (22:01)
--- NOTE | 2022-10-19 22:45 | P.PN ---
Date of Service: 10/19/22 Subjective: mentation improving but still with some confusion upset he is still in hospital, wants to go outside ROS: A complete review of systems was performed and is negative except as mentioned above Physical Exam: Gen: NAD, AOx2, confused HEENT: normal conjunctiva, sclera anicteric CV: regular rate & rhythm, no edema Pulm: diminished bilaterally, on 4L NC Abd: soft, non-tender, non-distended Neuro: normal speech, moves all extremities vitals reviewed Problem List acute metabolic encephalopathy, secondary to UTI / aspiration UTI Urinary retention Aspiration with suspected pneumonia iron deficiency anemia, severe COVID-19 UTI Urine culture - hart sensitive E. coli ?urinary retention, mathias placed in ED; unclear what occurred dc mathias aspiration pneumonia antibiotics broadened to iv levaquin/zosyn due to suspected aspiration event - overnight 10/15-10/16 CT noted extensive debris in bronchial treat - most notable in left mainstem bronchus and left lobar bronchi, infectious vs aspiration consulted pulm, eval for bronchoscopy pulm - no need for bronch, states ok to dc home pt still requiring O2 speech consulted wean O2 as tolerated; not on home O2 continue tamsulosin iron deficiency anemia could be contributing to psych baseline severely low IV iron ordered 10/18 VTE: lovenox Code: full Dispo: home vs SNF
[2022-10-19] MEDS: TAMSULOSIN 0.4 MG SR CAP PO SCH (23:06)
[2022-10-19] MEDS ORDERED: HALOPERIDOL LACT 5 MG/ML INJ IV ONE (23:47)
[2022-10-20 04:12] LABS: Hematocrit 30.7 % (39.6-49.0); RBC Red Blood Cell Count 4.59 M/uL (4.33-5.43)
[2022-10-20 04:28] LABS: Magnesium 1.8 mg/dL (1.6-2.4); Potassium 3.4 mmol/L (3.5-5.1)
[2022-10-20] MEDS ORDERED: MAGNESIUM SULFATE 1 gm IVPB 1 GM/100 ML BAG IV ONE (06:00)
[2022-10-20] MEDS: FE SULF/FA/VIT B COMP & C TAB PO SCH (08:00)
--- NOTE | 2022-10-20 08:16 | RAD REPORT ---
EXAM DESCRIPTION: RAD - Chest Single View - 10/20/2022 5:24 am CLINICAL HISTORY: f/u opacities COMPARISON: Chest Single View dated 10/16/2022; Chest Single View dated 10/11/2022; Chest For Pe Angio dated 10/16/2022 FINDINGS: Lines: None. Lungs: Improved aeration of the left lung. Elevated right hemidiaphragm increased Pleural: No significant pleural effusions or pneumothorax. Cardiac: The heart size is within normal limits. Mediastinum: Within normal limits. Bones: No acute fractures. Other: None IMPRESSION: No consolidative airspace disease. Improved aeration of the left lung. Elevation of the right hemidiaphragm more prominent than 10/16/2022 and may reflect some increased atelectasis.
[2022-10-20] MEDS: SOD FERRIC GLUC COMPLX/SUCROSE 125 MG in NA CHLORIDE 0.9% 100 ML IV SCH (08:49)
[2022-10-20] MEDS: ZINC SULFATE 220 MG CAP PO SCH (08:50)
[2022-10-20] MEDS: ENOXAPARIN 40 MG/0.4 ML SQ SCH (08:50)
[2022-10-20] MEDS: ASCORBIC ACID 500 MG TABLET PO SCH (08:50)
[2022-10-20] MEDS: ENSURE ENLIVE 237 ML CAN PO SCH ×2 (08:51→20:22)
[2022-10-20] MEDS ORDERED: POTASSIUM 25 MEQ EFFERV TAB PO ONE (09:00)
[2022-10-20] MEDS: levoFLOXacin 750 MG TAB PO SCH (14:12)
[2022-10-20 19:14] LABS: Potassium 4.5 mmol/L (3.5-5.1)
[2022-10-20] MEDS: MELATONIN 5 MG TABLET PO PRN (20:22)
[2022-10-20] MEDS: TAMSULOSIN 0.4 MG SR CAP PO SCH (20:22)
--- NOTE | 2022-10-20 21:13 | P.PN ---
Date of Service: 10/20/22 Subjective: reportedly agitated last night not following instruction / recommendations given haldol pt's mentation about the same as yesterday morning; AOx3, but slightly off ROS: A complete review of systems was performed and is negative except as mentioned above Physical Exam: Gen: NAD, AOx2, confused HEENT: normal conjunctiva, sclera anicteric CV: regular rate & rhythm, no edema Pulm: diminished bilaterally, on 4L NC Abd: soft, non-tender, non-distended Neuro: normal speech, moves all extremities vitals reviewed Problem List acute metabolic encephalopathy, secondary to UTI / aspiration UTI Urinary retention Aspiration with suspected pneumonia iron deficiency anemia, severe COVID-19 UTI Urine culture - hart sensitive E. coli ?urinary retention, mathias placed in ED; unclear what occurred dc mathias aspiration pneumonia antibiotics broadened to iv levaquin/zosyn due to suspected aspiration event - overnight 10/15-10/16 CT noted extensive debris in bronchial treat - most notable in left mainstem bronchus and left lobar bronchi, infectious vs aspiration consulted pulm, eval for bronchoscopy pulm - no need for bronch, states ok to dc home pt still requiring O2 speech consulted wean O2 as tolerated; not on home O2 continue tamsulosin iron deficiency anemia could be contributing to psych baseline severely low IV iron ordered 10/18 VTE: lovenox Code: full Dispo: home , ~1-2 days
[2022-10-21 04:23] LABS: Hematocrit 28.4 % (39.6-49.0); MCV 67.4 fL (80-100); MPV 10.3 fL (7.6-11.3); RBC Red Blood Cell Count 4.21 M/uL (4.33-5.43)
--- NOTE | 2022-10-21 07:25 | P.PN ---
Date of Service: 10/21/22 Subjective: no acute events patient alert, oriented, seems to understand what's going on able to explain, shows appropriate reasoning somewhat impulsive ROS: A complete review of systems was performed and is negative except as mentioned above Physical Exam: Gen: NAD, AOx3 HEENT: normal conjunctiva, sclera anicteric CV: regular rate & rhythm, no edema Pulm: diminished bilaterally, on RA Abd: soft, non-tender, non-distended Neuro: normal speech, moves all extremities vitals reviewed Problem List acute metabolic encephalopathy, secondary to UTI / aspiration /?COVID UTI Urinary retention Aspiration with suspected pneumonia iron deficiency anemia, severe COVID-19 UTI Urine culture - hart sensitive E. coli ?urinary retention, mathias placed in ED; unclear what occurred flomax mathias removed, voiding without issue. PVR acceptable aspiration pneumonia antibiotics broadened to iv levaquin/zosyn due to suspected aspiration event - overnight 10/15-10/16 CT noted extensive debris in bronchial treat - most notable in left mainstem bronchus and left lobar bronchi, infectious vs aspiration consulted pulm, eval for bronchoscopy pulm - no need for bronch, states ok to dc home pt still requiring O2 - weaned down to room air 10/21 speech consulted iron deficiency anemia could be contributing to psych baseline severely low IV iron started 10/18 VTE: lovenox Code: full Dispo: home , ~1 day if remains off O2
[2022-10-21] MEDS: ACETAMINOPHEN 500 MG TAB PO PRN ×2 (07:33→20:01)
[2022-10-21] MEDS: ZINC SULFATE 220 MG CAP PO SCH (08:44)
[2022-10-21] MEDS: SOD FERRIC GLUC COMPLX/SUCROSE 125 MG in NA CHLORIDE 0.9% 100 ML IV SCH (08:44)
[2022-10-21] MEDS: ENOXAPARIN 40 MG/0.4 ML SQ SCH (08:44)
[2022-10-21] MEDS: FE SULF/FA/VIT B COMP & C TAB PO SCH (08:44)
[2022-10-21] MEDS: ENSURE ENLIVE 237 ML CAN PO SCH ×2 (08:44→20:03)
[2022-10-21] MEDS: ASCORBIC ACID 500 MG TABLET PO SCH (08:44)
--- NOTE | 2022-10-21 12:17 | RAD REPORT ---
EXAM DESCRIPTION: RAD - Chest Single View - 10/21/2022 12:10 pm CLINICAL HISTORY: MD orders COMPARISON: Chest Single View dated 10/20/2022; Chest Single View dated 10/16/2022; Chest Single View da [place] 10/11/2022; Chest For Pe Angio dated 10/16/2022 FINDINGS: Lines: None. Lungs: No evidence of edema or pneumonia. Again noted is elevation of of the right hemidiaphragm. Pleural: No significant pleural effusions or pneumothorax. Cardiac: The heart size is within normal limits. Mediastinum: Within normal limits. Bones: No acute fractures. Other: None IMPRESSION: No acute cardiopulmonary disease.
[2022-10-21] MEDS: levoFLOXacin 750 MG TAB PO SCH (14:36)
[2022-10-21] MEDS: MELATONIN 5 MG TABLET PO PRN (20:01)
[2022-10-21] MEDS: TAMSULOSIN 0.4 MG SR CAP PO SCH (20:01)
[2022-10-22] MEDS: ENOXAPARIN 40 MG/0.4 ML SQ SCH (08:36)
[2022-10-22] MEDS: FE SULF/FA/VIT B COMP & C TAB PO SCH (08:37)
[2022-10-22] MEDS: ZINC SULFATE 220 MG CAP PO SCH (08:37)
[2022-10-22] MEDS: ASCORBIC ACID 500 MG TABLET PO SCH (08:37)
[2022-10-22] MEDS: ENSURE ENLIVE 237 ML CAN PO SCH ×2 (08:39→20:16)
[2022-10-22] MEDS: SOD FERRIC GLUC COMPLX/SUCROSE 125 MG in NA CHLORIDE 0.9% 100 ML IV SCH (09:16)
--- NOTE | 2022-10-22 10:04 | P.PN ---
Subjective Date of Service: 10/22/22 Chief Complaint: Altered mental status Patient is altered confused [place] any shortness of breath wants to go home Review of Systems General: Weakness Respiratory: Shortness of Breath Physical Examination - Vital Signs Temperature: 97.5 F Blood Pressure: 115/73 Pulse: 93 Respirations: 16 Pulse Ox (%): 97 - Physical Exam General: Alert, Oriented x2 Respiratory: Clear to auscultation bilaterally, Diminished Cardiovascular: No edema, Regular rate/rhythm Assessment And Plan - Current Problems (Diagnosis) (1) Abnormal CT scan of lung Current Visit: Yes Status: Acute Plan: [id number] admitted with altered mental status metabolic encephalopathy COVID-positive chest x-ray shows an elevated right hemidiaphragm oxygenation satisfactory he could have COVID induced encephalopathy recommend adding a low-dose steroid vital signs are stable there is no evidence of sepsis E. coli isolated from the urine condition satisfactory I also added some thiamine Physician Review: Patient Assessed, Agree with Above Assessment and Plan
[2022-10-22] MEDS: ACETAMINOPHEN 500 MG TAB PO PRN ×2 (11:04→20:15)
[2022-10-22] MEDS: dexAMETHasone 4 MG TAB PO SCH (11:05)
[2022-10-22] MEDS: THIAMINE HCL 100 MG TABLET PO SCH ×2 (11:05→20:15)
[2022-10-22] MEDS: levoFLOXacin 750 MG TAB PO SCH (15:00)
--- NOTE | 2022-10-22 17:46 | P.PN ---
Date of Service: 10/22/22 Subjective: no acute events improving still with some confusion daughter at bedside this morning, he's not quite to baseline ROS: A complete review of systems was performed and is negative except as mentioned above Physical Exam: Gen: NAD, AOx3, confused HEENT: normal conjunctiva, sclera anicteric CV: regular rate & rhythm, no edema Pulm: diminished bilaterally, on RA Abd: soft, non-tender, non-distended Neuro: normal speech, moves all extremities vitals reviewed Problem List acute metabolic encephalopathy, secondary to UTI / aspiration /?COVID UTI Urinary retention Aspiration with suspected pneumonia iron deficiency anemia, severe COVID-19 UTI Urine culture - hart sensitive E. coli ?urinary retention, mathias placed in ED; unclear what occurred flomax mathias removed, voiding without issue. PVR acceptable aspiration pneumonia antibiotics broadened to iv levaquin/zosyn due to suspected aspiration event - overnight 10/15-10/16 CT noted extensive debris in bronchial treat - most notable in left mainstem bronchus and left lobar bronchi, infectious vs aspiration consulted pulm, eval for bronchoscopy pulm - no need for bronch, states ok to dc home pt still requiring O2 - weaned down to room air 10/21 speech consulted +COVID-19 no obvious covid pneumonia on imaging, last CXR clear possibly contributing to encephalopathy iron deficiency anemia could be contributing to psych baseline severely low IV iron started 10/18 VTE: lovenox Code: full Dispo: home , tomorrow Discussed with daughter, he has some mild confusion /encephalopathy, otherwise walked well with PT, doing well.
[2022-10-22] MEDS: TAMSULOSIN 0.4 MG SR CAP PO SCH (20:15)
[2022-10-22] MEDS: MELATONIN 5 MG TABLET PO PRN (20:16)
[2022-10-23] MEDS: ACETAMINOPHEN 500 MG TAB PO PRN (05:24)
[2022-10-23] MEDS: dexAMETHasone 4 MG TAB PO SCH (08:52)
[2022-10-23] MEDS: THIAMINE HCL 100 MG TABLET PO SCH (08:52)
[2022-10-23] MEDS: FE SULF/FA/VIT B COMP & C TAB PO SCH (08:53)
[2022-10-23] MEDS: ENSURE ENLIVE 237 ML CAN PO SCH (08:54)
[2022-10-23 11:16] VITALS: BP 103/61; TEMP 97.2
[2022-10-23 11:47] VITALS: O2SAT 95
--- NOTE | 2022-10-23 15:18 | P.DS ---
Admission Date: 10/11/22 Discharge Date: 10/23/22 Disposition: ROUTINE DISCHARGE Discharge Condition: GOOD Reason for Admission: Altered mental status Consultations: PulmonologyDr. Arevalo Brief History of Present Illness: 77-year-old male, PMH: HTN Presented to the ED via EMS with altered mental status. He was found wandering outside his home naked. Oriented x1. History of similar presentation/confusion with prior UTIs. In the ED, his urine was concerning for UTI: Positive nitrates, positive leukocyte esterase positive bacteriuria. Creatinine: 1.43, lactate 2.1 He was also noted to be COVID-19 positive Admitted for sepsis secondary to UTI Hospital Course: Problem List sepsis secondary to UTI acute metabolic encephalopathy, secondary to UTI / aspiration /?COVID Urinary retention secondary to UTI Aspiration with suspected pneumonia iron deficiency anemia, severe COVID-19 Patient presented with altered mental status / confusion. He was found to have a UTI, secondary to hart-sensitive e.coli. COVID-19 positive. Hospitalization was complicated by delirium, brief urinary retention, and episode concerning for aspiration event. Overnight 10/15-10/16, patient was noted to be hypoxic / short of breath and found to have some emesis on his gown/face. CT noted debris in bronchial tree, most notable in left mainstem bronchus and left lobar bronchi - which could be infectious/aspiration/thick mucous per radiology. Patient's antibiotics were broadened. Pulmonology was consulted - no need for bronchoscopy. Patient's breathing improving quickly, and repeat chest x-rays were clear. Patient's mentation had gradual improvement. He worked with PT and was ambulating >250 ft. Villagran was removed and voiding without issue and good post void residuals for several days, breathing comfortably on room air, ambulating, tolerating diet. He was also noted to ahve iron deficiency anemia and received 5 days of IV iron. He continued to have slight confusion, but was otherwise stable. Secondary to recent infections, and possibly a mild COVID-19 encephalopathy. Discharged home to stay with family for a brief period as he further recovers. Discharged with a few more days of levaquin, decadron Iron supplementation Follow up: PCP within 3-5 days Pulmonology in ~2 weeks Vital Signs/Physical Exam: Temp Pulse Resp BP Pulse Ox 97.2 F 82 20 103/61 95 10/23/22 08:00 10/23/22 08:00 10/23/22 08:00 10/23/22 08:00 10/23/22 08:00 General: Alert, In no apparent distress, Oriented x3, Other (very mild confusion) HEENT: Sclerae nonicteric Respiratory: Clear to auscultation bilaterally, Normal air movement Cardiovascular: No edema, Regular rate/rhythm Gastrointestinal: Soft and benign, Non-distended, No tenderness Musculoskeletal: No contractures, No erythema Integumentary: No significant lesion, No tenderness/swelling Neurological: Normal speech, Normal strength at 5/5 x4 extr, Normal affect Laboratory Data at Discharge: WBC 4.80 K/uL (4.3-10.9) 10/21/22 04:02 Hgb 9.1 g/dL (13.6-17.9) L 10/21/22 04:02 Hct 28.4 % (39.6-49.0) L 10/21/22 04:02 Plt Count 176 K/uL (152-406) 10/21/22 04:02 PT 12.3 SECONDS (9.5-12.5) 10/11/22 20:22 INR 1.12 10/11/22 20:22 APTT 27.4 SECONDS (24.3-36.9) 10/11/22 20:22 Sodium 138 mmol/L (136-145) 10/21/22 04:02 Potassium 4.0 mmol/L (3.5-5.1) 10/21/22 04:02 BUN 12 mg/dL (7-18) 10/21/22 04:02 Creatinine 0.74 mg/dL (0.70-1.30) 10/21/22 04:02 Glucose 121 mg/dL (74-106) H 10/21/22 04:02 Phosphorus 4.1 mg/dL (2.5-4.9) 10/12/22 02:44 Magnesium 1.8 mg/dL (1.6-2.4) 10/20/22 04:03 Total Bilirubin 0.9 mg/dL (0.2-1.0) 10/11/22 20:22 AST 25 U/L (15-37) 10/11/22 20:22 ALT 25 U/L (16-61) 10/11/22 20:22 Alkaline Phosphatase 115 U/L (45-117) 10/11/22 20:22 Triglycerides 70 mg/dL (<150) 10/12/22 02:44 Cholesterol 174 mg/dL (<200) 10/12/22 02:44 HDL Cholesterol 44 mg/dL (40-60) 10/12/22 02:44 Cholesterol/HDL Ratio 3.95 10/12/22 02:44 Home Medications: Iron,Carbonyl/Ascorbic Acid [Fe C Tablet] 1 tab PO DAILY 90 Days #90 tab 10/23/22 Tamsulosin [Flomax*] 1 cap PO BEDTIME 30 Days #30 cap 10/23/22 dexAMETHasone [Decadron*] 4 mg PO DAILY 5 Days #5 tab 10/23/22 levoFLOXacin [Levaquin*] 1 tab PO Q24H 3 Days #3 tab 10/23/22 New Medications: dexAMETHasone [Decadron*] 4 mg PO DAILY 5 Days #5 tab Iron,Carbonyl/Ascorbic Acid [Fe C Tablet] 1 tab PO DAILY 90 Days #90 tab Tamsulosin [Flomax*] 1 cap PO BEDTIME 30 Days #30 cap levoFLOXacin [Levaquin*] 1 tab PO Q24H 3 Days #3 tab Physician Discharge Instructions: Patient presented with altered mental status / confusion. He was found to have a UTI, secondary to hart-sensitive e.coli. COVID-19 positive. Hospitalization was complicated by delirium, brief urinary retention, and episode concerning for aspiration event. Overnight 10/15-10/16, patient was noted to be hypoxic / short of breath and found to have some emesis on his gown/face. CT noted debris in bronchial tree, most notable in left mainstem bronchus and left lobar bronchi - which could be infectious/aspiration/thick mucous per radiology. Patient's antibiotics were broadened. Pulmonology was consulted - no need for bronchoscopy. Patient's breathing improving quickly, and repeat chest x-rays were clear. Patient's mentation had gradual improvement. He worked with PT and was ambulating >250 ft. Villagran was removed and voiding without issue and good post void residuals for several days, breathing comfortably on room air, ambulating, tolerating diet. He was also noted to ahve iron deficiency anemia and received several days of IV iron. He continued to have slight confusion, but was otherwise stable. Secondary to recent infections, and possibly a mild COVID-19 encephalopathy. Discharged home to stay with family for a brief period as he further recovers. Discharged with a few more days of levaquin, decadron Iron supplementation Follow up: PCP within 3-5 days Pulmonology in ~2 weeks Followup: Dariusz Arevalo MD [ACTIVE - CAN ADMIT] - 1-2 Weeks (Call for appointment.) Unknown,U [Primary Care Provider] - 1 Week (Call for appointment.) Time spent managing pt's care (in minutes): 45
== END 2022-10-23 11:49 | disposition home or self-care (01) | DRG 871 ==
LOC: ER 19:49 → ERHOLD 21:34 → 4TH 22:59 → ERHOLD 10-12 04:16 → 4TH 10-12 04:17
PROVIDERS: ADMIT Internal Medicine; ATTEND Hospitalist
DX: A41.51 Sepsis due to Escherichia coli [E. coli] (principal); G93.41 Metabolic encephalopathy; U07.1 COVID-19; J69.0 Pneumonitis due to inhalation of food and vomit; N17.9 Acute kidney failure, unspecified; E87.0 Hyperosmolality and hypernatremia; F05 Delirium due to known physiological condition; N30.01 Acute cystitis with hematuria; R65.20 Severe sepsis without septic shock; E86.0 Dehydration; F03.90 Unspecified dementia, unspecified severity, without behavioral disturbance, psychotic disturbance, mood disturbance, and anxiety; F29 Unspecified psychosis not due to a substance or known physiological condition; I10 Essential (primary) hypertension; D50.9 Iron deficiency anemia, unspecified; R33.9 Retention of urine, unspecified; Z60.2 Problems related to living alone; Z88.1 Allergy status to other antibiotic agents
CPT/HCPCS: 0240U; 36415; 70450; 71045; 71275; 80048; 80053; 80061; 81003; 81015; 82805; 82947; 83540; 83605; 83735; 83880; 84100; 84443; 84466; 85025; 85027; 85610; 85730; 87040; 87077; 87086; 87088; 87186; 93005; 94010; 94760; 96360; 96361; 97116; 97161; 97530; 99285; J1630; J1650; J2543; J2916; J3475; J3486; J7030; J7040; J7042; J8540; Q9967

== ENCOUNTER → 2023-12-11 | Emergency (ER) | payer OTHER ==
[~2023-12-11] MED LIST: ALBUTEROL 2.5 MG/3 ML NEB SOL ONE; METHYLPREDNISOLONE 125 MG INJ ONE
--- NOTE | 2023-12-11 14:26 | EKG ---
Test Date: 2023-12-11 Test Time: 13:57:41 Director Of Gift Planning: CHARLES MEASUREMENT RESULTS: Intervals: Rate: 92 AR: 170 QRSD: 108 QT: 374 QTc: 462 [facility]: P: 80 AR: 170 QRS: 78 T: 63 INTERPRETIVE STATEMENTS: Normal sinus rhythm Biatrial enlargement Left ventricular hypertrophy Cannot rule out Anterior infarct, age undetermined Abnormal ECG Compared to ECG 10/11/2022 19:57:11 Left ventricular hypertrophy now present Sinus tachycardia no longer present Ventricular premature complex(es) no longer present Myocardial infarct finding still present Electronically Signed On 12-11-23 14:25:29 MOLD RELEASE WORKER by Ilya Goodwin
--- NOTE | 2023-12-11 15:04 | RAD REPORT ---
EXAM DESCRIPTION: Nik Single View12/11/2023 2:40 pm CLINICAL HISTORY: Shortness of breath COMPARISON: 2022 FINDINGS: Chronic elevation right hemidiaphragm The lungs appear clear of acute infiltrate. The heart is normal size IMPRESSION: No acute abnormalities displayed
--- NOTE | 2023-12-11 15:09 | EDPHYS ---
Physician Documentation [facility] Name: Dejuan Daigle Age: 78 yrs Sex: Male : 1945 Arrival Date: 12/11/2023 Time: 13:31 Bed 13 Private MD: ED Physician Quinton Casas HPI: 12/11 14:11 This 78 yrs old Male presents to ER via Wheelchair with complaints of shortness of sb4 breath. 14:12 patient complains of worsening shortness of breath over the past few weeks. is a daily sb4 smoker. denies history of COPD. denies any chest pain/wheezing. does not use any inhalers or daily steroids. no orthopnea. Historical: - Allergies: 14:00 Sulfa (Sulfonamide Antibiotics); nj1 - PMHx: 14:00 Hypertensive disorder; nj1 - Immunization history:: Client reports receiving the 2nd dose of the Covid vaccine. - Social history:: Smoking status: Patient reports the use of cigarette tobacco products, smokes two packs cigarettes per day. ROS: 14:12 Constitutional: Negative for fever, chills, and weight loss, sb4 14:12 Respiratory: Positive for dyspnea on exertion, 14:12 All other systems are negative, Exam: 14:12 Constitutional: This is a well developed, well nourished patient who is awake, alert, sb4 and in no acute distress. Head/Face: Normocephalic, atraumatic. Eyes: Extra-ocular motions intact. Periorbital areas with no swelling, redness, or edema. ENT: Mucous membranes moist. Cardiovascular: Regular rate and rhythm with a normal S1 and S2. Respiratory: Lungs have equal breath sounds bilaterally, clear to auscultation and percussion. No rales, rhonchi or wheezes noted. No increased work of breathing, no retractions or nasal flaring. Abdomen/GI: Soft, non-tender, no distension. Skin: Warm, dry with normal turgor. Normal color with no rashes, no lesions, and no evidence of cellulitis. MS/ Extremity: Pulses equal, no cyanosis. Neurovascular intact. Full, normal range of motion. Neuro: Awake and alert, GCS 15, oriented to person, place, time, and situation. Motor strength 5/5 in all extremities. Sensory grossly intact. Vital Signs: 13:57 BP 128 / 63; Pulse 96; Resp 20; Temp 98.5; Pulse Ox 100% on R/A; Weight 72.57 kg; nj1 Height 5 ft. 9 in. ; 16:44 BP 134 / 70; Pulse 84; Resp 18; Pulse Ox 99% ; ko1 13:57 Body Mass Index 23.63 (72.57 kg, 175.26 cm) nj1 MDM: 13:52 Patient medically screened. sb4 14:12 Differential diagnosis: Anemia asthma, Bronchitis CHF exacerbation, Chronic Obstructive sb4 Pulmonary Disease pneumonia, pulmonary edema. 15:07 Data reviewed: vital signs, nurses notes, EKG, and as a result, I will discharge sb4 patient. ED course: patient left after triage and my assessment, prior to labs being obtained. we did obtain his chest xray and EKG which were reassuring. 15:24 ED course: patient returned. will undo discharge. care delayed. sb4 16:36 Antibiotic administration: Not indicated, the patient does not have an appreciated sb4 infiltrate. Counseling: I had a detailed discussion with the patient and/or guardian regarding the historical points, exam findings, and any diagnostic results supporting the discharge/admit diagnosis, lab results, radiology results, the need for outpatient follow up, a assessment manager, to return to the emergency department if symptoms worsen or persist or if there are any questions or concerns that arise at home, smoking cessation. 12/11 14:10 Order name: BMP; Complete Time: 16:00 sb4 12/11 14:10 Order name: CBC with Diff 4 12/11 14:10 Order name: Hepatic Function; Complete Time: 16:00 sb4 12/11 14:10 Order name: Magnesium; Complete Time: 16:00 sb4 12/11 14:10 Order name: NT PRO-BNP; Complete Time: 16:00 sb4 12/11 14:10 Order name: PT-INR; Complete Time: 15:53 4 12/11 14:10 Order name: Ptt, Activated; Complete Time: 15:53 12/11 14:10 Order name: Troponin HS; Complete Time: 16:00 sb4 12/11 14:10 Order name: XRAY CXR (1 view); Complete Time: 15:05 12/11 14:10 Order name: EKG; Complete Time: 14:11 sb4 12/11 14:10 Order name: EKG - Nurse/Tech; Complete Time: 14:11 sb4 EC:22 Rate is 92 beats/min. Rhythm is regular, Normal Sinus Rhythm. MN interval is normal at sb4 170 msec. QRS interval is normal at 108 msec. QT interval is normal at [address] changes noted. Clinical impression: LVH, No evidence of ischemia, and biatrial enlargement. Interpreted by me. Reviewed by me. Administered Medications: 15:11 Not Given (Patient Eloped): albuterol1.25 mg Inhalation once sb4 15:44 Drug: Albuterol Inhalation 1.25 mg Inhalation once Route: Inhalation; ko1 16:10 Drug: MethylPrednisoLONE IVP 60 mg IVP once Route: IVP; Site: right antecubital; ko1 Disposition Summary: 12/11/23 16:37 Discharge Ordered Notes: Location: Home(12/11/23 16:37) sb4 Problem: an ongoing problem(12/11/23 16:37) sb4 Symptoms: have improved(12/11/23 16:37) sb4 Condition: Stable(12/11/23 16:37) sb4 Diagnosis - COPD/ Chronic obstructive pulmonary disease, unspecified sb4 - Iron deficiency anemia, unspecified sb4 Followup: sb4 - With: Dariusz Arevalo MD - When: 2 - 3 days - Reason: Recheck today's complaints, Re-evaluation by your physician Discharge Instructions: - Discharge Summary Sheet sb4 - Iron Deficiency Anemia, Adult sb4 - Living With COPD sb4 Forms: - Thank You Letter sb4 - Patient Portal Instructions sb4 - Leadership Thank You Letter sb4 Prescriptions: - albuterol sulfate 90 mcg/actuation Inhalation HFA Aerosol Inhaler - inhale 2 puff INHALATION route every 4 hours as needed for shortness of breath sb4 or wheezing; 1 Applicator; Refills: 0, Product Selection Permitted - Ferrous Sulfate 325 mg (65 mg Iron) Oral tablet - take 1 tablet ORAL route Every night; 30 tablet; Refills: 0, Product Selection sb4 Permitted Signatures: Dispatcher [employer] Moni Valera RN RN ko1 Rose Fisher PA-C PA-C sb4 Ewelina Blake RN RN nj1 Corrections: (The following items were deleted from the chart) 15:11 14:10 Cardiac monitoring ordered. sb4 ap3 15: 14:10 IV Saline Lock ordered. sb4 ap3 15: 14:10 Labs collected and sent ordered. sb4 ap3 15: 14:10 Oxygen Per Protocol ordered. sb4 ap3 15: 14:10 O2 Sat Monitoring ordered. sb4 ap3 15: 15:08 Home sb4 sb4 15: 15:08 an ongoing problem sb4 sb4 15: 15:08 are unchanged sb4 sb4 15: 15:08 Undetermined sb4 sb4 15: 15:08 Shortness of breath sb4 sb4
--- NOTE | 2023-12-11 15:09 | ER ---
Nurse's Notes [facility] Name: Dejuan Daigle Age: 78 yrs Sex: Male : 1945 Arrival Date: 12/11/2023 Time: 13:31 Bed 13 Private MD: Diagnosis: COPD/ Chronic obstructive pulmonary disease, unspecified;Iron deficiency anemia, unspecified Presentation: 12/11 13:57 Chief complaint: Patient states: Shortness of breath for a while, getting worse. nj1 Coronavirus screen: Vaccine status: Patient reports receiving the 2nd dose of the covid vaccine. Ebola Screen: Patient denies travel to an Ebola-affected area in the 21 days before illness onset. Initial Sepsis Screen: Does the patient meet any 2 criteria? No. Patient's initial sepsis screen is negative. Does the patient have a suspected source of infection? No. Patient's initial sepsis screen is negative. Risk Assessment: Do you want to hurt yourself or someone else? Patient reports no desire to harm self or others. Onset of symptoms was 2023. 13:57 Method Of Arrival: Wheelchair [facility] 13:57 Acuity: BOBBY 3 nj1 Historical: - Allergies: 14:00 Sulfa (Sulfonamide Antibiotics); nj1 - PMHx: 14:00 Hypertensive disorder; nj1 - Immunization history:: Client reports receiving the 2nd dose of the Covid vaccine. - Social history:: Smoking status: Patient reports the use of cigarette tobacco products, smokes two packs cigarettes per day. Screenin:00 [facility] ED Fall Risk Assessment (Adult) History of falling in the last 3 months, ko1 including since admission No falls in past 3 months (0 pts) Confusion or Disorientation No (0 pts) Intoxicated or Sedated No (0 pts) Impaired Gait No (0 pts) Mobility Assist Device Used No (0 pt) Altered Elimination No (0 pt) Score/Fall Risk Level 0 - 2 = Low Risk Oriented to surroundings, Maintained a safe environment, Educated pt \T\ family on fall prevention, incl call for assistance when getting out of bed, Assessed \T\ reinforced patient's understanding of fall precautions, Provided non-skid footwear, Hourly rounding (assess needs \T\ fall precautionary measures) done, Used ambulatory aids as needed (educated on \T\ assisted with), Used gait belt as appropriate. Abuse screen: Denies threats or abuse. Denies injuries from another. Nutritional screening: No deficits noted. Tuberculosis screening: No symptoms or risk factors identified. Assessment: 14:00 Pain: Denies pain. Cardiovascular: Rhythm is regular. Respiratory: Airway is patent ko1 Respiratory effort is even, unlabored, Breath sounds are diminished Breath sounds with wheezes bilaterally. Vital Signs: 13:57 BP 128 / 63; Pulse 96; Resp 20; Temp 98.5; Pulse Ox 100% on R/A; Weight 72.57 kg; nj1 Height 5 ft. 9 in. ; 16:44 BP 134 / 70; Pulse 84; Resp 18; Pulse Ox 99% ; ko1 13:57 Body Mass Index 23.63 (72.57 kg, 175.26 cm) nj1 ED Course: 13:40 Patient arrived in ED. mg5 13:52 Rose Fisher PA-C is PHCP. sb4 13:52 Quinton Casas MD is Attending Physician. sb4 14:00 Triage completed. nj1 14:00 Patient has correct armband on for positive identification. Placed in gown. Bed in low ko1 position. Call light in reach. Side rails up X2. Provided Education on: na. Door closed. Noise minimized. Lights dimmed. Warm blanket given. 14:00 No provider procedures requiring assistance completed. ko1 14:01 Arm band placed on left wrist. nj1 14:10 EKG done, by ED staff, reviewed by Rose Fisher PA-C. ph 14:42 XRAY CXR (1 view) In Process Unspecified. EDMS 15:37 Moni Rolle, RN is Primary Nurse. ko1 15:39 quality assurance monitor on. Pulse ox on. NIBP on. ap3 15:39 Initial lab(s) drawn, by me, sent to lab. Inserted saline lock: 22 gauge in right ap3 antecubital area, using aseptic technique. Blood collected. 16:37 Dariusz Arevalo MD is Referral Physician. sb4 16:46 IV discontinued, intact, bleeding controlled, No redness/swelling at site. Pressure ko1 dressing applied. Administered Medications: 15:11 Not Given (Patient Eloped): albuterol1.25 mg Inhalation once sb4 15:44 Drug: Albuterol Inhalation 1.25 mg Inhalation once Route: Inhalation; ko1 16:10 Drug: MethylPrednisoLONE IVP 60 mg IVP once Route: IVP; Site: right antecubital; ko1 Medication: 16:44 VIS not applicable for this client. ko1 Outcome: 15:08 Discharge ordered by MD. sb4 16:37 Discharge ordered by MD. sb4 16:55 Discharged to home via wheelchair, ko1 16:55 Condition: stable 16:55 Discharge instructions given to patient, Instructed on discharge instructions, follow up and referral plans. medication usage, Demonstrated understanding of instructions, follow-up care, medications, Prescriptions given X 2, 17:02 Patient left the ED. ko1 Signatures: Dispatcher [employer] EDMS Carrie Hannon RN RN Cathie Howard RN RN [email or web address] Moni Rolle RN RN ko1 Rose Fisher, PA-C PA-C sb4 Ewelina Blake RN RN nj1 Emma Sneed mg5 Corrections: (The following items were deleted from the chart) 16:44 14:00 BP 134 / 70; Pulse 84bpm; Resp 18bpm; Pulse Ox 99%; ko1 ko1
[2023-12-11 15:49] LABS: Absolute Lymphocytes (CBC) 1.7 K/uL (0.7-4.9); Hematocrit 26.5 % (39.6-49.0); Lymphocytes % 25.2 % (15.3-44.8); MCV 62.8 fL (80-100); Platelets 266 thou/uL (152-406); RBC Red Blood Cell Count 4.23 M/uL (4.33-5.43)
[2023-12-11 15:53] LABS: Protime INR 1.06
[2023-12-11 15:59] LABS: Albumin 3.8 g/dL (3.4-5.0); Bilirubin Direct 0.2 mg/dL (0-0.2); Bilirubin Indirect, Calculated 0.5 mg/dL (0.2-0.8); Bilirubin Total 0.7 mg/dL (0.2-1.0); Magnesium 2.1 mg/dL (1.6-2.4); Potassium 4.1 mEq/L (3.5-5.1); Protein, Total 7.2 g/dL (6.4-8.2)
[2023-12-11 17:47] VITALS: BP 134/70; TEMP 98.5; O2SAT 99
[2023-12-11 20:36] LABS: Anisocytosis 1+; Blood Morphology Comment NOTED (NOT SEEN); Platelet Estimate ADEQ; Poikilocytosis 2+; White Blood Cell Scan OK (OK)
== END ==
LOC: ER 13:31
DX: J44.9 Chronic obstructive pulmonary disease, unspecified (principal); D50.9 Iron deficiency anemia, unspecified; I10 Essential (primary) hypertension; F17.210 Nicotine dependence, cigarettes, uncomplicated; Z88.2 Allergy status to sulfonamides
CPT/HCPCS: 93005; 85025; 80048; 36415; 83735; 85610; 80076; 85730; 84484; 83880; 71045; J7613; J2930; 96374; 99285